=== PATIENT | male | born 1970 | race Caucasian/White ===

== ENCOUNTER 2021-01-07 12:41 | Emergency (ER) | payer SELFPAY ==
[2021-01-07 13:00] VITALS: RESP 18; TEMP 98.3
--- NOTE | 2021-01-07 13:00 | ED ---
General Adult HPI - General Chief complaint: Fall Stated complaint: fall, hip pain Time Seen by Provider: 01/07/21 12:48 Source: EMS Mode of arrival: EMS Limitations: physical limitation - History of Present Illness Initial comments: Dictation was produced using [employer] dictation software. please excuse any grammatical, word or spelling errors. Chief Complaint: 50-year-old male presents with left hip pain History of Present Illness: 50-year-old male he denies any significant comorbidities. 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 Patient states that just prior to arrival he fell off approximately 2-1/2 feet. He landed on his left side of raising his left elbow. He states that he had significant left hip pain. EMS provided patient with 50 mg of IV ketamine. States that helped improve his symptoms. Denies any numbness and paresthesias to the foot The ROS documented in this emergency department record has been reviewed and confirmed by me. Those systems with pertinent positive or negative responses have been documented in the HPI. All other systems are other negative and/or noncontributory. PHYSICAL EXAM: General Impression: Alert and oriented x3, not in acute distress HEENT: Normocephalic atraumatic, extra-ocular movements intact, pupils equal and reactive to light bilaterally, mucous membranes moist. Cardiovascular: Heart regular rate and rhythm Chest: Able to complete full sentences, no retractions, no tachypnea Abdomen: abdomen soft, non-tender, non-distended, no organomegaly Musculoskeletal: Pulses present and equal in all extremities, no peripheral edema Left lower; there does appear to be some shortening of the left lower extremity, tenderness to palpation over the greater trochanter. Left elbow is ranged with no issues. Motor: no focal deficits noted Neurological: CN II-XII grossly intact, no focal motor or sensory deficits noted Skin: Abrasion over the left elbow Psych: Normal affect and mood ED course: 50-year-old male presents with left hip pain after fall. Vital signs upon arrival are within acceptable limits. Patient received 50 mg of IV ketamine by prehospital providers. Patient offered analgesic medications however he refused upon initial evaluation. At approximately 2:00 PM upon reevaluation he did request more pain meds. Laboratory evaluation obtained. CBC, coag panel, metabolic panel is unremarkable. Hip and pelvis x-ray shows left femoral neck fracture. This is discussed with [facility] who is taking call for orthopedic city call. The, he back and states that patient needs to be transferred to [place] for orthopedic trauma service. Case discussed with Dr. Stafford from orthopedics trauma at [facility] is willing to accept the transfer of patient. - Related Data Home Medications Medication Instructions Recorded Confirmed No Known Home Medications 01/07/21 01/07/21 Allergies Allergy/AdvReac Type Severity Reaction Status Date / Time sertraline [From Zoloft] AdvReac Nausea Verified 01/07/21 13:48 Review of Systems ROS Statement: Those systems with pertinent positive or pertinent negative responses have been documented in the HPI. ROS Other: All systems not noted in ROS Statement are negative. 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 History of Any Multi-Drug Resistant Organisms: None Reported Past Surgical History: Cholecystectomy, Orthopedic Surgery Past Psychological History: No Psychological Hx Reported Smoking Status: Never smoker Past Alcohol Use History: None Reported Past Drug Use History: None Reported General Exam Limitations: physical limitation Course Vital Signs 01/07/21 12:45 Temperature 98.3 F Pulse Rate 66 Respiratory 18 Rate Blood Pressure 182/106 O2 Sat by Pulse 98 Oximetry Medical Decision Making - Lab Data Result diagrams: 01/07/21 13:30 01/07/21 13:30 Lab Results 01/07/21 01/07/21 01/07/21 Range/Units 13:30 13:30 13:30 WBC 11.4 H (3.8-10.6) k/uL RBC 4.56 (4.30-5.90) m/uL Hgb 14.9 (13.0-17.5) gm/dL Hct 44.6 (39.0-53.0) % MCV 97.7 (80.0-100.0) fL MCH 32.8 (25.0-35.0) pg MCHC 33.5 (31.0-37.0) g/dL RDW 12.9 (11.5-15.5) % Plt Count 238 (150-450) k/uL MPV 8.2 Neutrophils % 83 % Lymphocytes % 10 % Monocytes % 5 % Eosinophils % 1 % Basophils % 1 % Neutrophils # 9.5 H (1.3-7.7) k/uL Lymphocytes # 1.1 (1.0-4.8) k/uL Monocytes # 0.5 (0-1.0) k/uL Eosinophils # 0.2 (0-0.7) k/uL Basophils # 0.1 (0-0.2) k/uL PT 10.7 (9.0-12.0) sec INR 1.0 (<1.2) APTT 24.3 (22.0-30.0) sec Sodium 141 (137-145) mmol/L Potassium 4.1 (3.5-5.1) mmol/L Chloride 107 (98-107) mmol/L Carbon Dioxide 27 (22-30) mmol/L Anion Gap 7 mmol/L BUN 12 (9-20) mg/dL Creatinine 0.98 (0.66-1.25) mg/dL Est GFR (CKD-EPI)AfAm >90 (>60 ml/min/1.73 sqM) Est GFR (CKD-EPI)NonAf >90 (>60 ml/min/1.73 sqM) Glucose 99 (74-99) mg/dL Calcium 9.4 (8.4-10.2) mg/dL Disposition Clinical Impression: Hip fracture Disposition: OTHER INSTITUTION NOT DEFINED Referrals: None,Stated [Primary Care Provider] - 1-2 days - Out of Hospital Transfer - Req. Specs Out of Hospital Transfer - Requested Specifics: Other Emergency Center ([facility])
--- NOTE | 2021-01-07 13:44 | XR ---
EXAMINATION TYPE: XR Hip LT and AP Pelvis DATE OF EXAM: 01/07/2021 CLINICAL HISTORY: pain TECHNIQUE: Single view the pelvis is submitted. 3 views of the left hip are also submitted. FINDINGS: There is angulated fracture at the base of the left femoral neck. No additional fractures a re seen with certainty at this time. Joint spaces are well-preserved. SI joints appear symmetric. IMPRESSION: 1. Fracture at the base of the left femoral neck. ICD 10 closed FRACTURE, INITIAL EVALUATION
[2021-01-07 13:47] LABS: Basophils # (A) 0.1 k/uL (0-0.2); Basophils % (A) 1 %; Eosinophils # (A) 0.2 k/uL (0-0.7); Eosinophils % (A) 1 %; HCT 44.6 % (39.0-53.0); HGB 14.9 gm/dL (13.0-17.5); Lymphocytes # (A) 1.1 k/uL (1.0-4.8); Lymphocytes % (A) 10 %; MCH 32.8 pg (25.0-35.0); MCHC 33.5 g/dL (31.0-37.0); MCV 97.7 fL (80.0-100.0); Mean Platelet Volume 8.2; Monocytes # (A) 0.5 k/uL (0-1.0); Monocytes % (A) 5 %; Neutrophils # (A) 9.5 k/uL (1.3-7.7); Neutrophils % (A) 83 %; Platelet Count 238 k/uL (150-450); RBC 4.56 m/uL (4.30-5.90); RDW 12.9 % (11.5-15.5); WBC 11.4 k/uL (3.8-10.6)
[2021-01-07 13:58] LABS: Partial Thromboplastin Time 24.3 sec (22.0-30.0); Prothrombin Time 10.7 sec (9.0-12.0)
[2021-01-07 13:59] LABS: African American GFR (CKD) >90 (>60 ml/min/1.73 sqM); Anion Gap 7 mmol/L; Blood Urea Nitrogen 12 mg/dL (9-20); Calcium 9.4 mg/dL (8.4-10.2); Carbon Dioxide 27 mmol/L (22-30); Chloride 107 mmol/L (98-107); Glucose 99 mg/dL (74-99); Non-African American GFR(CKD) >90 (>60 ml/min/1.73 sqM); Potassium 4.1 mmol/L (3.5-5.1); Sodium 141 mmol/L (137-145)
[2021-01-07] MEDS ORDERED: MORPHINE SULFATE 4 MG/ML SYRINGE IV STA (14:04)
[2021-01-07] MEDS ORDERED: HYDROmorphone 1 MG/ML 1 ML SYRINGE IVP STA (15:01)
[2021-01-07 15:05] VITALS: BP 158/88; PULSE 78
== END 2021-01-07 15:22 | disposition other institution (70) ==
LOC: EC 12:41
DX: S72.002A Fracture of unspecified part of neck of left femur, initial encounter for closed fracture (principal); W17.89XA Other fall from one level to another, initial encounter
CPT/HCPCS: 36415; 80048; 85025; 85610; 85730; 73502; 96374; 96375; 99285; J2270; J1170

== ENCOUNTER 2021-11-08 14:17 | Emergency (ER) | payer BC ==
[2021-11-08 14:45] VITALS: RESP 18
[2021-11-08] MEDS ORDERED: ACETAMINOPHEN TAB 500 MG TAB PO STA (14:52)
--- NOTE | 2021-11-08 14:53 | ED ---
General Adult HPI - General Chief complaint: Chest Pain Stated complaint: chest pain Time Seen by Provider: 11/08/21 14:19 Source: patient, EMS Mode of arrival: EMS - History of Present Illness Initial comments: Dictation was produced using [employer] dictation software. please excuse any grammatical, word or spelling errors. Chief Complaint: 51-year-old male presents emergency department for chest pain History of Present Illness: Patient is a 51-year-old male is brought in by EMS for chest pain. He states that earlier today he was cutting the grass when he began to feel sharp chest pain in his back and substernal chest. States that he feels like his symptoms are reproducible with deep inspiration. He called EMS and was brought to the emergency department. Just prior to arrival he began feeling constitutional symptoms. She denies any obvious sick exposures. Denies any cough. Denies shortness of breath. His history of osteosarcoma that was treated with chemotherapy. He's been in remission since 1990. Denies any lower external swelling or pain. No history of blood clots or PEs. The ROS documented in this emergency department record has been reviewed and confirmed by me. Those systems with pertinent positive or negative responses have been documented in the HPI. All other systems are other negative and/or noncontributory. PHYSICAL EXAM: General Impression: Alert and oriented x3, not in acute distress HEENT: Normocephalic atraumatic, extra-ocular movements intact, pupils equal and reactive to light bilaterally, mucous membranes moist. Cardiovascular: Heart regular rate and rhythm Chest: Able to complete full sentences, no retractions, no tachypnea Abdomen: abdomen soft, non-tender, non-distended, no organomegaly Musculoskeletal: Pulses present and equal in all extremities, no peripheral edema Motor: no focal deficits noted Neurological: CN II-XII grossly intact, no focal motor or sensory deficits noted Skin: Intact with no visualized rashes Psych: Normal affect and mood ED course: 51 yo well-appearing male presents to the emergency department for chief complaint of chest pain. His pain is atypical and pleuritic. As upon arrival shows temperature 100.5, rest of vital signs within acceptable limits. He is a component of acute infectious process with pyrexia and constitutional symptoms. EKG does not show signs of ischemia or infarction. Lavatory evaluation obtained. Mild leukocytosis of 15.1. D-dimer is negative at 0.5. Metabolic panel is negative. Cardiac enzymes negative. 4 panel viral PCR is negative. Chest x-ray is nonacute. Patient observed in the emergency department for approximately 2 hours and 30 minutes. He is reevaluated at bedside found to be stable medical condition. Patient's clinical symptoms likely secondary to early viral infection. Patient given prescription for antibiotics to be taken in a week and see fashion. Patient told that in 3 days if his symptoms are not improved starts to get worse with the development of respiratory symptoms he is started to go ahead and start taking the medications. Otherwise is advised follow-up with his primary care doctor. EKG interpretation: Ventricular rate 90, sinus rhythm,. 160, QS 90, QTC 398. No CA prolongation, no QTC prolongation, no ST or T-wave changes noted. No old EKG for comparison Overall, this EKG is unremarkable - Related Data Previous Rx's Medication Instructions Recorded Azithromycin [Zithromax Z-pack] 0 mg PO DIRECTED #6 tab 11/08/21 Allergies Allergy/AdvReac Type Severity Reaction Status Date / Time sertraline [From Zoloft] AdvReac Nausea Verified 01/07/21 13:48 Review of Systems ROS Statement: Those systems with pertinent positive or pertinent negative responses have been documented in the HPI. ROS Other: All systems not noted in ROS Statement are negative. Past Medical History Additional Past Medical History / Comment(s): Osteosarcoma left leg in 1990 chemo tx History of Any Multi-Drug Resistant Organisms: None Reported Past Surgical History: Cholecystectomy, Orthopedic Surgery Past Psychological History: No Psychological Hx Reported Smoking Status: Never smoker Past Alcohol Use History: None Reported Past Drug Use History: None Reported Course Vital Signs 11/08/21 14:40 Temperature 100.5 F H Pulse Rate 83 Respiratory 18 Rate Blood Pressure 147/105 O2 Sat by Pulse 96 Oximetry Medical Decision Making - Lab Data Result diagrams: 11/08/21 14:53 11/08/21 14:53 Lab Results 11/08/21 11/08/21 11/08/21 Range/Units 14:53 14:53 14:53 WBC 15.1 H (3.8-10.6) k/uL RBC 5.16 (4.30-5.90) m/uL Hgb 16.3 (13.0-17.5) gm/dL Hct 50.0 (39.0-53.0) % MCV 96.9 (80.0-100.0) fL MCH 31.6 (25.0-35.0) pg MCHC 32.6 (31.0-37.0) g/dL RDW 12.8 (11.5-15.5) % Plt Count 236 (150-450) k/uL MPV 7.6 Neutrophils % 81 % Lymphocytes % 9 % Monocytes % 5 % Eosinophils % 3 % Basophils % 1 % Neutrophils # 12.2 H (1.3-7.7) k/uL Lymphocytes # 1.4 (1.0-4.8) k/uL Monocytes # 0.8 (0-1.0) k/uL Eosinophils # 0.4 (0-0.7) k/uL Basophils # 0.2 (0-0.2) k/uL D-Dimer 0.50 (<0.60) mg/L FEU Sodium 141 (137-145) mmol/L Potassium 4.2 (3.5-5.1) mmol/L Chloride 104 (98-107) mmol/L Carbon Dioxide 24 (22-30) mmol/L Anion Gap 13 mmol/L BUN 12 (9-20) mg/dL Creatinine 1.01 (0.66-1.25) mg/dL Est GFR (CKD-EPI)AfAm >90 (>60 ml/min/1.73 sqM) Est GFR (CKD-EPI)NonAf 87 (>60 ml/min/1.73 sqM) Glucose 91 (74-99) mg/dL Calcium 9.5 (8.4-10.2) mg/dL Total Bilirubin 1.0 (0.2-1.3) mg/dL AST 33 (17-59) U/L ALT 33 (4-49) U/L Alkaline Phosphatase 104 (38-126) U/L Troponin I (0.000-0.034) ng/mL Total Protein 8.4 H (6.3-8.2) g/dL Albumin 5.3 H (3.5-5.0) g/dL Lipase 51 (23-300) U/L Influenza Type A (PCR) (Not Detectd) Influenza Type B (PCR) (Not Detectd) RSV (PCR) (Not Detectd) SARS-CoV-2 (PCR) (Not Detectd) 11/08/21 11/08/21 Range/Units 14:53 14:53 WBC (3.8-10.6) k/uL RBC (4.30-5.90) m/uL Hgb (13.0-17.5) gm/dL Hct (39.0-53.0) % MCV (80.0-100.0) fL MCH (25.0-35.0) pg MCHC (31.0-37.0) g/dL RDW (11.5-15.5) % Plt Count (150-450) k/uL MPV Neutrophils % % Lymphocytes % % Monocytes % % Eosinophils % % Basophils % % Neutrophils # (1.3-7.7) k/uL Lymphocytes # (1.0-4.8) k/uL Monocytes # (0-1.0) k/uL Eosinophils # (0-0.7) k/uL Basophils # (0-0.2) k/uL D-Dimer (<0.60) mg/L FEU Sodium (137-145) mmol/L Potassium (3.5-5.1) mmol/L Chloride (98-107) mmol/L Carbon Dioxide (22-30) mmol/L Anion Gap mmol/L BUN (9-20) mg/dL Creatinine (0.66-1.25) mg/dL Est GFR (CKD-EPI)AfAm (>60 ml/min/1.73 sqM) Est GFR (CKD-EPI)NonAf (>60 ml/min/1.73 sqM) Glucose (74-99) mg/dL Calcium (8.4-10.2) mg/dL Total Bilirubin (0.2-1.3) mg/dL AST (17-59) U/L ALT (4-49) U/L Alkaline Phosphatase (38-126) U/L Troponin I <0.012 (0.000-0.034) ng/mL Total Protein (6.3-8.2) g/dL Albumin (3.5-5.0) g/dL Lipase (23-300) U/L Influenza Type A (PCR) Not Detected (Not Detectd) Influenza Type B (PCR) Not Detected (Not Detectd) RSV (PCR) Not Detected (Not Detectd) SARS-CoV-2 (PCR) Not Detected (Not Detectd) Disposition Clinical Impression: Pleurisy Disposition: HOME SELF-CARE Condition: Good Instructions (If sedation given, give patient instructions): Pleurisy (ED) Prescriptions: Azithromycin [Zithromax Z-pack] 0 mg PO DIRECTED #6 tab Is patient prescribed a controlled substance at d/c from ED?: No Referrals: None,Stated [Primary Care Provider] - 1-2 days
[2021-11-08 15:07] LABS: Basophils # (A) 0.2 k/uL (0-0.2); Basophils % (A) 1 %; Eosinophils # (A) 0.4 k/uL (0-0.7); Eosinophils % (A) 3 %; HGB 16.3 gm/dL (13.0-17.5); Lymphocytes # (A) 1.4 k/uL (1.0-4.8); Lymphocytes % (A) 9 %; MCH 31.6 pg (25.0-35.0); MCHC 32.6 g/dL (31.0-37.0); MCV 96.9 fL (80.0-100.0); Mean Platelet Volume 7.6; Monocytes # (A) 0.8 k/uL (0-1.0); Monocytes % (A) 5 %; Neutrophils # (A) 12.2 k/uL (1.3-7.7); Neutrophils % (A) 81 %; Platelet Count 236 k/uL (150-450); RBC 5.16 m/uL (4.30-5.90); RDW 12.8 % (11.5-15.5); WBC 15.1 k/uL (3.8-10.6)
[2021-11-08 15:17] LABS: ALT 33 U/L (4-49); AST 33 U/L (17-59); African American GFR (CKD) >90 (>60 ml/min/1.73 sqM); Albumin 5.3 g/dL (3.5-5.0); Alkaline Phosphatase 104 U/L (38-126); Anion Gap 13 mmol/L; Blood Urea Nitrogen 12 mg/dL (9-20); Calcium 9.5 mg/dL (8.4-10.2); Carbon Dioxide 24 mmol/L (22-30); Chloride 104 mmol/L (98-107); Glucose 91 mg/dL (74-99); Lipase 51 U/L (23-300); Non-African American GFR(CKD) 87 (>60 ml/min/1.73 sqM); Potassium 4.2 mmol/L (3.5-5.1); Sodium 141 mmol/L (137-145); Total Protein 8.4 g/dL (6.3-8.2)
--- NOTE | 2021-11-08 15:36 | XR ---
EXAMINATION TYPE: XR chest 2V DATE OF EXAM: 11/08/2021 COMPARISON: NONE HISTORY: Chest pain TECHNIQUE: 2 view FINDINGS: Heart is normal. Lungs are clear of consolidation. There are no hilar masses. There are thelma st leads. Bony thorax is intact. IMPRESSION: No active cardiopulmonary disease. Normal heart.
[2021-11-08 17:28] VITALS: BP 145/96; PULSE 78; TEMP 98.5
== END 2021-11-08 17:29 | disposition home or self-care (01) ==
LOC: EC 14:17
DX: R09.1 Pleurisy (principal); Z20.822 Contact with and (suspected) exposure to COVID-19
CPT/HCPCS: 36415; 71046; 80053; 83690; 84484; 85025; 85379; 87636